=== PATIENT | male | born 1985 | race Caucasian/White ===

== ENCOUNTER 2019-08-15 20:48 | Emergency (ER) | payer SELFPAY ==
[~2019-08-15] VITALS: Ht 175.3 cm; Wt 81.6 kg
[2019-08-15 20:51] VITALS: BP 120/78
[2019-08-15 21:20] VITALS: BP 120/78
== END 2019-08-15 21:20 ==
LOC: MED 20:48
DX: S80.12XA Contusion of left lower leg, initial encounter (principal); Z02.89 Encounter for other administrative examinations; V89.2XXA Person injured in unspecified motor-vehicle accident, traffic, initial encounter; Y93.89 Activity, other specified; Y92.89 Other specified places as the place of occurrence of the external cause; Y99.8 Other external cause status
CPT/HCPCS: 99283